=== PATIENT | male | born 1975 ===

== ENCOUNTER 2020-06-10 05:36 | Day surgery (SDC) | payer OTHER | END 2020-06-10 11:50 | disposition home or self-care (01) | LOC: AMB-ENDOS 05:36 → ADM 15:15 → EDBD 15:15 | PROVIDERS: ATTEND Surgery | DX: K63.5 Polyp of colon (principal); K64.4 Residual hemorrhoidal skin tags; Z12.11 Encounter for screening for malignant neoplasm of colon ==

== ENCOUNTER → 2020-12-27 | Emergency (ER) | payer OTHER ==
[~2020-12-27] VITALS: Ht 177.8 cm; Wt 85.7 kg
[~2020-12-27] MED LIST: CYCLOBENZAPRINE10 MG PO; KETO10TA2 PO; ORPHENADRINE C100 MG PO; VOLTAREN100 GM TOP
== END | disposition home or self-care (01) ==
LOC: ER 10:28
DX: S33.5XXA Sprain of ligaments of lumbar spine, initial encounter (principal); X50.0XXA Overexertion from strenuous movement or load, initial encounter; Y93.89 Activity, other specified; Y92.89 Other specified places as the place of occurrence of the external cause; Y99.8 Other external cause status